=== PATIENT | male | born 1975 | race Caucasian/White ===

== ENCOUNTER 2020-02-19 13:34 | Emergency (ER) | payer OTHER, SELFPAY ==
[2020-02-19] VITALS (9 sets, daily range): BP systolic 138–146; BP diastolic 79–83; PULSE 77–90; RESP 17–22; TEMP 36.7; O2SAT 96–99
--- NOTE | 2020-02-19 13:30 | DI.CT_ITS ---
EXAM: CT CHEST/ABD/PEL W TECHNIQUE: CT examination of the chest, abdomen, and pelvis was performed with bolus infusion of 100 cc of Omnipaque 350. COMPARISON: No exams were available for comparison FINDINGS: Patient reportedly had blunt/penetrating trauma to the right upper anterior chest. There is an area of subcutaneous and deep muscular soft tissue edema with tiny amounts of gas extending to exterior wills rface of the right 3rd rib anteriorly. No gross hematoma. There is no pneumothorax. There is no ri b fracture. Sternum appears intact as does the clavicle. There is no evidence of a thoracic vascular injury. The lungs are clear. No pneumothorax or pleural effusion. No mediastinal hematoma. No adenopathy in the chest. Tracheobronchial tree appears intact. The liver, spleen, and pancreas appear normal. Gallbladder and bile ducts are normal. Adrenals and kidneys are unremarkable. No evidence of urinary tract injury or obstruction. No abdominal or pelvic vascular injury seen. No abdominal or pelvic adenopathy. No significant abdomi nal wall hernia or hematoma. No evidence of bowel injury. IMPRESSION: Injury to subcutaneous and deep tissues external to the thoracic cage as described above. Tiny quant ities of gas extend to the external surface of the right 3rd rib anteriorly adjacent to the costochon dral junction. No additional injury identified. RADIATION DOSE DELIVERED: Total DLP DATA REPOSITORY: All CT scans at this facility are submitted to the National Radiology Data Registry (NRDR) Dose Index Registry (DIR) with the [employer] (ACR). RADIATION OPTIMIZATION: All CT scans at this facility use at least one of these dose optimization te chniques: automated exposure control; mA and/or kV adjustment per patient size (includes targeted exa ms where dose is matched to clinical indication); or iterative reconstruction.
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
[2020-02-19 13:54] LABS: Abs Immature Grans 0.03 k/cumm (0.0-0.09); Absolute Basophil Count 0.04 k/cumm (0.0-0.2); Absolute Eosinophil Count 0.14 k/cumm (0.0-0.7); Absolute Lymphocyte Count 3.55 k/cumm (1.2-3.4); Absolute Monocyte Count 0.69 k/cumm (0.11-0.7); Absolute Neutrophil Count 4.99 k/cumm (1.2-6.7); Basophils % 0.4; Eosinophils % 1.5; HCT 44.6 % (40.0-50.0); HGB 15.9 g/dL (13.5-17.5); Immature Grans % 0.3 %; Lymphocytes % 37.6; Mean Corp. HGB Concentration 35.7 g/dL (32.0-36.0); Mean Corpuscular Hemoglobin 30.9 pg (27.0-33.0); Mean Corpuscular Volume 86.8 fL (80-95); Mean Platelet Volume 9.4 fL (8.0-11.0); Monocytes % 7.3; Neutrophils % 52.9; Platelet Count 289 x1000/uL (130-400); RBC 5.14 m/cumm (4.50-6.00); White Blood Cell Count 9.44 k/cumm (4.4-10.8)
[2020-02-19] MEDS: ACETAMINOPHEN 1,000 MG/100 ML BTL 400 MG IVPB (13:55)
[2020-02-19 14:10] LABS: ALT 66 U/L (16-63); AST 21 U/L (15-37); Albumin 4.1 g/dL (3.4-5.0); Alkaline Phosphatase 69 U/L (46-116); Anion Gap 9.4 mmol/L (3-11); BUN 15 mg/dL (7-18); Bilirubin, Total 0.4 mg/dL (0.2-1.0); CO2 28.6 mmol/L (21.0-32.0); CREATININE 1.29 mg/dL (0.70-1.30); Calcium 8.9 mg/dL (8.5-10.1); Chloride 102 mmol/L (98-107); Glucose 114 mg/dL (74-106); Potassium 3.4 mmol/L (3.5-5.1); Sodium 140 mmol/L (136-145); Total Protein 7.7 g/dL (6.4-8.2)
[2020-02-19 14:12] LABS: Troponin I < 0.05 ng/Ml (<0.06)
[2020-02-19] MEDS: Omnipaque 350 MG/ML 100 ML BTL IJ (14:19)
[2020-02-19] MEDS: Normal Saline 1,000 ML 1000 ML IV (14:24)
--- NOTE | 2020-02-19 15:29 | NUR.NOTE ---
wound was sutured by PA drain placed DSD put over wound after skin was shaved. Pt tolerated well pt states his pain has decreased to a 1/10Nursing Note:
== END 2020-02-19 16:00 | disposition home or self-care (01) ==
PROVIDERS: Emergency Provider Physician Assistant
DX: S21.111A Laceration without foreign body of right front wall of thorax without penetration into thoracic cavity, initial encounter (principal); R07.89 Other chest pain; R10.11 Right upper quadrant pain; R03.0 Elevated blood-pressure reading, without diagnosis of hypertension; I25.10 Atherosclerotic heart disease of native coronary artery without angina pectoris; Z95.5 Presence of coronary angioplasty implant and graft; W20.8XXA Other cause of strike by thrown, projected or falling object, initial encounter
CPT/HCPCS: 36415; 74177; 80053; 93005; 96361; 96374; 99285; 71260; 83735; 84484; 85025; 93010; 99284; J0131; J3490

== ENCOUNTER → 2020-02-29 12:57 | Outpatient (BNVA) | payer OTHER, SELFPAY | PROVIDERS: Visit Provider Surgery | DX: Z48.00 Encounter for change or removal of nonsurgical wound dressing (principal); S29.9XXD Unspecified injury of thorax, subsequent encounter; X58.XXXD Exposure to other specified factors, subsequent encounter | CPT/HCPCS: 99212 ==

== ENCOUNTER 2020-11-16 08:05 | Emergency (ER) | payer OTHER, SELFPAY ==
[2020-11-16 08:12] VITALS: BP 149/96; PULSE 82; RESP 16; TEMP 36.3; O2SAT 98
[2020-11-16] MEDS: Fluorescein STRIPS 100/BOX 1 MG (08:22)
[2020-11-16] MEDS: Tetracaine 0.5% 4 ML BTL (08:22)
--- NOTE | 2020-11-16 08:58 | ED.GENADUL_ITS ---
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 as you have a residual rust ring in your eye that will need management as soon as possible Use the erythromycin ointment 3 times daily for the 7 days or as recommended by your eye doctor Please return if vision change, dramatically worsening pain, or with any new or progressing complaints You may take ibuprofen 600 mg every 8 hours with food for pain control and Tylenol 650 mg every 4-6 hours for breakthrough pain Sunglasses can help with your light sensitivity blood pressure rechecked by pcp Medical Decision Making I removed the foreign body in left eye, there was no residual foreign body that I could note, there is a rust ring so I believe this with a metal injury Given the contractility of the patient's pupil, I will refer patient to ophthalmology for tomorrow evaluation, case management was made aware and patient will see [facility] Residual abrasion from removal of foreign body Placed on erythromycin ointment No evidence of open globe, negative Yousif sign, foreign body noted, no evidence of iritis or glaucoma Expressed need to follow-up on Tuesday Visual acuity 20/20 OU, OD, OS Differential Diagnosis Differential Diagnosis: Foreign body, open globe, rust strain, conjunctivitis Medical Records Medical records reviewed: Yes I reviewed the patient's medical records. HPI This 45-year-old male presents with discomfort to his left eye. He denies known trauma. 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 He denies any c orrective lenses or contact lens use. He awoke with the pain at 12:00 AM. He denies any blurry vision or double vision. He denies any additional complaints. He states that the pain is exacerbated with blinking. General Date/Time Provider Initiated Documentation: 11/16/20 08:11 . Related Data Home Medications Medication Instructions Recorded Confirmed aspirin [Aspirin Low-Strength] 81 mg PO DAILY tab-cap 11/07/15 11/16/20 atorvastatin 40 mg PO DAILY tab-cap 11/07/15 11/16/20 ibuprofen 200 mg PO DAILY PRN 07/14/17 11/16/20 acetaminophen 325 mg capsule 650 mg PO Q4H PRN cap 02/20/20 11/16/20 Allergies Allergy/AdvReac Type Severity Reaction Status Date / Time ticagrelor Allergy Intermediate Hives Unverified 11/16/20 08:16 morphine AdvReac Severe pyschosis Verified 11/16/20 08:16 General Stated Complaint: EyeProblem KEVIN: 4 Review of Systems Narrative: Review of systems obtained x3 aside from where indicated in HPI, systems to explain no loss of vision, double vision, drainage from eyes [facility] Medical History (Updated 11/16/20 @ 08:56 by LORETTA Vela) ACS (acute coronary syndrome) Surgical History History of heart artery stent Social History Smoking/Tobacco Use Status: Former Tobacco Use Smoking risk assessment performed?: Yes Alcohol Intake: current Alcohol Intake frequency: a few times a week Alcohol type: beer Drug use: Never Substance use type: does not use Do you feel safe at home: Yes Do you feel safe in your relationship?: Yes Exam [facility] Head: normal to inspection Eyes Periorbital: periorbital findings normal Eyelids: eyelids normal Conjunctivae: conjunctival abnormality Cornea: corneas abnormal and fluorescein used Pupils: PERRL EOM: EOM intact bilaterally Direct ophthalmoscopy: normal light reflex Eyes/upper lids images: 1. Foreign body noted, rust ring Course Vital Signs Vital signs: Vital Signs Temperature 36.3 C L 11/16/20 08:12 Pulse 82 11/16/20 08:12 Respiratory Rate 16 11/16/20 08:12 Blood Pressure 149/96 H 11/16/20 08:12 Pulse Oximetry 98 11/16/20 08:12 Temperature 36.3 C L 11/16/20 08:12 Temperature Source Tympanic 11/16/20 08:12 Pulse 82 11/16/20 08:12 Respiratory Rate 16 11/16/20 08:12 Respiratory Effort Non-Labored 11/16/20 08:12 Blood Pressure 149/96 H 11/16/20 08:12 Blood Pressure Position Sitting 11/16/20 08:12 Pulse Oximetry 98 11/16/20 08:12 Oxygen Delivery Method Room Air 11/16/20 08:12 Oxygen Flow Rate 0 11/16/20 08:12 Pain Level 8 11/16/20 08:12 Comment Visual actuity performed. 11/16/20 08:12
[2020-11-16] MEDS: Erythromycin Ophth Oint 3.5 GM TUBE OS (09:06)
--- NOTE | 2020-11-16 10:16 | NUR.NOTE ---
Nursing Note: Referral, provider note, and patient demographics faxed to [facility] for follow up tomorrow. Theresa Villegas
== END 2020-11-16 09:05 | disposition home or self-care (01) ==
PROVIDERS: Emergency Provider Physician Assistant
DX: H16.022 Ring corneal ulcer, left eye (principal)
CPT/HCPCS: 99282; 99283

== ENCOUNTER 2021-06-29 17:50 | Emergency (ER) | payer OTHER, SELFPAY ==
[2021-06-29 18:04] VITALS: BP 132/82; PULSE 87; RESP 14; TEMP 37; O2SAT 98
[2021-06-29 19:01] VITALS: BP 125/83; PULSE 80; RESP 18; TEMP 36.6; O2SAT 98
[2021-06-29 19:08] LABS: Bilirubin Negative (Negative); Blood Negative (Negative); Clarity Clear (Clear); Glucose Negative (Negative); Ketones Negative (Negative); Leukocyte Esterase Negative (Negative); Nitrite Negative (Negative); Specific Gravity >= 1.030 (1.005-1.025); Urobilinogen 0.2 EU/dL (Up TO 0.2); pH 5.5 (5-8)
[2021-06-29 19:11] LABS: Abs Immature Grans 0.03 10^3/uL (0.0-0.06); Absolute Basophil Count 0.05 10^3/uL (0.0-0.2); Absolute Eosinophil Count 0.12 10^3/uL (0.0-0.7); Absolute Lymphocyte Count 2.64 10^3/uL (1.2-3.4); Absolute Monocyte Count 0.75 10^3/uL (0.1-0.8); Absolute Neutrophil Count 7.13 10^3/uL (1.2-6.7); Basophils % 0.5; Eosinophils % 1.1; HCT 45.9 % (40.0-50.0); HGB 15.8 g/dL (13.5-17.5); Immature Grans % 0.3; Lymphocytes % 24.6; MCH 30.6 pg (27.0-33.0); MCHC 34.4 % (32.0-36.0); MPV 9.4 fL (8.0-11.0); Neutrophils % 66.5; Nucleated RBC 0 %; Platelet Count 277 10^3/uL (130-400); RBC 5.16 10^6/uL (4.36-5.78); RDW 12.4 % (11.8-14.1); WBC 10.72 10^3/uL (4.4-10.8)
--- NOTE | 2021-06-29 19:15 | DI.CT_ITS ---
Exam(s) CT ABDOMEN PELVIS W EXAM: CT ABDOMEN PELVIS W CLINICAL HISTORY: RLQ abdominal pain TECHNIQUE: Imaging Protocol: Axial computed tomography images with coronal and sagittal reformatted images were created and reviewed CONTRAST MATERIAL: Intravenous: Omnipaque 350 Contrast volume:100 mL Oral: No COMPARISON: CT CT CHEST/ABD/PEL W from 02/19/2020 FINDINGS: ABDOMEN: Lung Bases: Dependent atelectasis. Liver: Diffuse fatty infiltration of the liver. No measurable mass. Portal, Superior Mesenteric, and Splenic Veins: Unremarkable. Gallbladder and Biliary Tract: No radiodense calculus or dilation. Pancreas: Normal density, no abnormal calcifications or inflammatory process. Spleen: Normal. Adrenals: No masses seen. Kidneys: Normal size, contour and axis. No radiodense stones or obstructive uropathy. No masses seen. Abdominal Aorta: Abdominal portion non-dilated. Mild atherosclerosis. Bowel: No obstruction or bowel wall thickening. Appendix is unremarkable. Peritoneal Cavity: No ascites. There are inflammatory changes seen adjacent to the ascending colon a round of fat density abnormality suggestive of epiploic appendagitis. No free air. Lymph Nodes: Within normal limits. Bones: Within normal limits for the patient's age. Soft Tissues: Bilateral fat containing inguinal hernia. PELVIS: Bladder: The urinary bladder is incompletely distended. There is mild thickening of the wall likely due to underdistention. Inflammatory or infectious cystitis cannot be excluded. Please correlate cl inically. Reproductive Organs: Unremarkable as visualized. Lymph Nodes: Within normal limits. Bones: Within normal limits for the patient's age. IMPRESSION: 1. Findings consistent with epiploic appendagitis adjacent to the ascending colon. 2. Normal appendix. 3. Nondistended urinary bladder. Apparent thickening of the wall which is likely due to underdistent ion. Infectious/inflammatory cystitis cannot be entirely excluded. RADIATION DOSE DELIVERED: 1,236.46mGy.cm Total DLP DATA REPOSITORY: All CT scans at this facility are submitted to the National Radiology Data Registry (NRDR) Dose Index Registry (DIR) with the [employer] (ACR). RADIATION OPTIMIZATION: All CT scans at this facility use at least one of these dose optimization te chniques: automated exposure control; mA and/or kV adjustment per patient size (includes targeted exa ms where dose is matched to clinical indication); or iterative reconstruction.
--- NOTE | 2021-06-29 19:23 | ED.GENADUL_ITS ---
Discharge Plan Disposition Patient Disposition: HOME Condition: Improving Discharge Details Clinical Impression: Epiploic appendagitis Primary Care Provider: [place] ED Provider: Lilliana Subramanian Home Meds and New Rx's Prescriptions: Continued acetaminophen [Tylenol] 325 mg capsule 650 mg PO Q4H PRNRF: 0 atorvastatin 80 MG tablet 40 mg PO DAILY RF: 0 aspirin [Aspirin Low-Strength] 81 MG tablet,chewable 81 mg PO DAILY RF: 0 ibuprofen 200 MG tablet 200 mg PO DAILY PRNRF: 0 Discharge Instructions Instructions: Abdominal Pain (ED) Additional Instructions: Your CT scan today noted evidence of inflammatory changes within the fatty tissue holding the bowel together consistent with a blood clot within the fatty tissue which is called epiploic appendagitis. This is a benign and self- limiting condition meaning that it will likely resolve on its own within the next few days. Alternate tylenol and motrin as needed and directed for pain. Call your primary care doctor tomorrow to schedule a follow-up appointment for reevaluation. There were other additional likely incidental findings noted on your CT scan today. You should follow up with general surgery for evaluation and consideration for outpatient colonoscopy for the colitis noted on your CT scan today. You should also follow-up with urology for consideration for outpatient cystoscopy for the urinary bladder wall thickening noted on your CT scan today. Return immediately to the emergency department if you develop any worsening or new concerning symptoms. Discharge Data Discharge Physician: Lilliana Subramanian Medical Decision Making 45yo M w/ a h/o coronary artery disease, LA, hyperlipidemia, hernia repair presents with right lower quadrant abdominal pain since this morning. Patient appears comfortable and non-toxic. His abdomen is soft but tender in the suprapubic and right lower quadrant region. There is no rigidity or guarding. Differential diagnosis includes appendicitis, gastroenteritis, colitis. History and presentation does not appear consistent with UTI, diverticulitis, mesenteric ischemia. Will place an IV, bolus IV fluids, screening labs, CT abdomen and pelvis and give a dose of IV Tylenol and reassess. Patient is declining any narcotic pain medication. Labs and imaging reviewed. Normal white blood cell count. Normal hemoglobin. Normal electrolytes. Urinalysis obtained on arrival and notes high specific gravity but no evidence of infection. CT abdomen and pelvis notes: IMPRESSION: 1. Inflammatory changes within the mesentery adjacent to the ascending colon with findings typical for epiploic appendagitis. 2. The appendix appears normal. 3. Thickening of the wall of the descending and sigmoid colon. This may be artifact due to lack of distention. However, inflammatory bowel disease or other causes of colitis cannot be excluded. Follow-up with colonoscopy is advised to exclude any possibility of an underlying colonic lesion, if not done recently. 4. Urinary bladder wall thickening. This may be artifact due to lack of distention. However, cystitis or neoplasm cannot be excluded. 5. Fatty liver disease. Patient reassessed and his symptoms are improved. Patient feels comfortable going home. His results were explained and that his symptoms are likely due to epiploic appendagitis which is a benign and self-limiting condition. He is advised to alternate Tylenol and Motrin. The other CT scan findings were also discussed and that he was advised to follow-up with general surgery and urology at the [place] for further evaluation of this if indicated. Usual and customary return precautions given prior to discharge. Medical Records Medical records reviewed: Yes I reviewed the patient's medical records. Imaging Data Radiologic Study: Radiologist's impression: CT Abdomen And Pelvis With Contrast Exam date and time: 06/29/2021 7:22 PM Age: 45 years old Clinical indication: Localized; Right lower quadrant (rlq); Patient HX: Rlq abdominal pain; Per PT: Since this morning TECHNIQUE: Imaging protocol: Computed tomography of the abdomen and pelvis with contrast. COMPARISON: CT CHEST/ABD/PEL W 02/19/2020 1:52 PM FINDINGS: Liver: The liver appears diffusely decreased in density. Gallbladder and bile ducts: Normal. No calcified stones. No ductal dilation. Pancreas: Normal. No ductal dilation. Spleen: Normal. No splenomegaly. Adrenal glands: Normal. No mass. Kidneys and ureters: Normal. No hydronephrosis. Stomach and bowel: There is mild thickening of the wall of the descending and sigmoid colon though they are not well distended. Appendix: The appendix is well-visualized and appears normal. Intraperitoneal space: Mesenteric inflammatory changes are seen adjacent to the ascending colon with a hyperattenuating ring sign consistent with epiploic appendagitis. Vasculature: The aorta demonstrates mild atherosclerotic calcification. Lymph nodes: Unremarkable. No enlarged lymph nodes. Urinary bladder: Thickened wall of the urinary bladder. Reproductive: Unremarkable as visualized. Bones/joints: Unremarkable. No acute fracture. Soft tissues: Unremarkable. IMPRESSION: 1. Inflammatory changes within the mesentery adjacent to the ascending colon with findings typical for epiploic appendagitis. 2. The appendix appears normal. 3. Thickening of the wall of the descending and sigmoid colon. This may be artifact due to lack of distention. However, inflammatory bowel disease or other causes of colitis cannot be excluded. Follow-up with colonoscopy is advised to exclude any possibility of an underlying colonic lesion, if not done recently. 4. Urinary bladder wall thickening. This may be artifact due to lack of distention. However, cystitis or neoplasm cannot be excluded. 5. Fatty liver disease. Lab Data Lab results reviewed: Yes I reviewed the patient's lab results. Labs: Laboratory Tests Range/Units 06/29/21 06/29/21 06/29/21 18:56 19:05 19:05 WBC (4.4-10.8) 10^3/uL 10.72 RBC (4.36-5.78) 10^6/uL 5.16 Hgb (13.5-17.5) g/dL 15.8 Hct (40.0-50.0) % 45.9 MCV (80-95) fL 89.0 MCH (27.0-33.0) pg 30.6 MCHC (32.0-36.0) % 34.4 RDW (11.8-14.1) % 12.4 Plt Count (130-400) 10^3/uL 277 MPV (8.0-11.0) fL 9.4 Immature Gran % 0.3 Neutrophils % 66.5 Lymphocytes % 24.6 Monocytes % 7.0 Eosinophils % 1.1 Basophils % 0.5 Nucleated RBC % % 0 Absolute Neutrophils (1.2-6.7) 10^3/uL 7.13 H Absolute Lymphocytes (1.2-3.4) 10^3/uL 2.64 Absolute Monocytes (0.1-0.8) 10^3/uL 0.75 Absolute Eosinophils (0.0-0.7) 10^3/uL 0.12 Absolute Basophils (0.0-0.2) 10^3/uL 0.05 Sodium (136-145) mmol/L 140 Potassium (3.5-5.1) mmol/L 4.5 Chloride (98-107) mmol/L 105 Carbon Dioxide (21.0-32.0) mmol/L 29.6 Anion Gap (3-11) mmol/L 5.4 BUN (7-18) mg/dL 21 H Creatinine (0.70-1.30) mg/dL 1.2 Estimated GFR/1.73 m2 (mL/min/1.73m2) >= 60.00 Glucose (74-106) mg/dL 96 Calcium (8.5-10.1) mg/dL 9.2 Total Bilirubin (0.2-1.0) mg/dL 0.4 AST (15-37) U/L 12 L ALT (16-63) U/L 44 Alkaline Phosphatase (46-116) U/L 75 Total Protein (6.4-8.2) g/dL 8.1 Albumin (3.4-5.0) g/dL 4.1 Lipase (73-393) U/L 125 Urine Color (Yellow) Yellow Urine Clarity (Clear) Clear Urine pH (5-8) 5.5 Ur Specific Powers (1.005-1.025) >= 1.030 H Urine Protein (Negative) mg/dL Trace H Urine Ketones (Negative) mg/dL Negative Urine Blood (Negative) Negative Urine Nitrite (Negative) Negative Urine Bilirubin (Negative) Negative Urine Urobilinogen (Up TO 0.2) EU/dL 0.2 Ur Leukocyte Esterase (Negative) Negative Urine RBC (0-2) HPF Negative Urine WBC (0-5) HPF Negative Ur Epithelial Cells (Negative) HPF Few Urine Crystals (Negative) HPF Negative Urine Bacteria (Negative) HPF Negative Urine Casts (Negative) LPF 3-5 Hyaline Urine Mucus (Negative) Moderate Ur Culture Indicated? No Urine Glucose (Negative) mg/dL Negative HPI General Mode of arrival: ambulatory . Date/Time Provider Initiated Documentation: 06/29/21 18:01 . Limitations to Documentation: no limitations . Information obtained by: patient . HPI Narrative: Patient is a 45-year-old male with a history of coronary artery disease, hyperlipidemia, LA and hernia repair presents for right lower quadrant abdominal pain this morning. He describes the pain is intermittent and dull this morning, and now more constant and sharp this evening. He states the pain is currently 7/10. He denies any radiation of pain. He states he has not taken any medication for pain. He denies any fever, nausea, vomiting, diarrhea, urinary symptoms or injury. He denies any aggravating or alleviating factors. He states he has been eating normally today. Related Data Home Medications Medication Instructions Recorded Confirmed aspirin [Aspirin Low-Strength] 81 mg PO DAILY tab-cap 11/07/15 06/29/21 atorvastatin 40 mg PO DAILY tab-cap 11/07/15 06/29/21 ibuprofen 200 mg PO DAILY PRN 07/14/17 06/29/21 acetaminophen 325 mg capsule 650 mg PO Q4H PRN cap 02/20/20 06/29/21 Allergies Allergy/AdvReac Type Severity Reaction Status Date / Time ticagrelor Allergy Intermediate Hives Unverified 06/29/21 19:00 morphine AdvReac Severe pyschosis Verified 06/29/21 19:00 General Stated Complaint: Abd Prob KEVIN: 3 Review of Systems All systems reviewed & are unremarkable except as noted in HPI and below Constitutional Constitutional: Reports as per HPI, Denies chills and Denies fever(s) Eyes Eyes: Denies blurry vision ENT Ears, Nose, Mouth, and Throat: Denies dizziness, Denies sore throat and Denies throat swelling Cardiovascular Cardiovascular: Denies chest pain and Denies dyspnea Respiratory Respiratory: Denies cough and Denies dyspnea Gastrointestinal Gastrointestinal: Denies abdominal pain, Denies diarrhea and Denies vomiting Genitourinary Genitourinary: Denies hematuria and Denies dysuria Musculoskeletal Musculoskeletal: Denies back pain and Denies numbness Integumentary/Breasts Skin/Breast: Denies lesions and Denies rash Neurologic Neurologic: Denies dizziness, Denies localized weakness and Denies numbness Allergic/Immunologic Allergic/Immunologic: Denies throat swelling [facility] Medical History (Updated 06/29/21 @ 21:31 by Lilliana Subramanian DO) ACS (acute coronary syndrome) Surgical History History of heart artery stent Social History Smoking/Tobacco Use Status: Current every day Tobacco Type: cigarettes Smoking risk assessment performed?: Yes Alcohol Intake: current Alcohol Intake frequency: 0-2 drinks per day Alcohol type: beer Drug use: Never Substance use type: does not use Do you feel safe at home: Yes Do you feel safe in your relationship?: Yes Exam Const General: cooperative, healthy appearing and no acute distress [facility] Head: normal to inspection Face and sinus: normal facial exam Eyes General: appearance normal, both eyes and all related structures EOM: EOM intact bilaterally Neck Neck: normal visual inspection and No submandibular swelling Lymphatic: no lymphadenopathy noted Chest Chest: normal inspection of the chest and no tenderness Resp Effort & Inspection: normal respiratory effort and able to speak in complete sentences Auscultation: clear to auscultation bilaterally Cardio Rate: regular rate Rhythm: regular rhythm GI Inspection: normal to inspection Palpation: soft, not firm, not rigid and tender in the RLQ Auscultation: hypoactive bowel sounds Skin General skin exam: no rashes or lesions noted Neuro General: patient alert, patient awake and patient oriented x3 Cognition: normal cognition Speech: speech normal Motor: muscle tone normal throughout Sensory Exam: no sensory deficits noted Extrem General: normal to inspection, full ROM, capillary refill normal, no calf tenderness bilaterally and no edema Psych Appearance: grossly normal Mental Status: mental status grossly normal Speech and Movement: speech and movement normal Affect: normal affect Course Vital Signs Vital signs: Vital Signs Temperature 98.6 F 06/29/21 18:04 Pulse 87 06/29/21 18:04 Respiratory Rate 14 06/29/21 18:04 Blood Pressure 132/82 06/29/21 18:04 Pulse Oximetry 98 06/29/21 18:04 Temperature 97.9 F 06/29/21 19:01 Temperature Source Temporal Artery Scan 06/29/21 19:01 Pulse 80 06/29/21 19:01 Respiratory Rate 18 06/29/21 19:01 Respiratory Effort Non-Labored 06/29/21 18:57 Blood Pressure 125/83 06/29/21 19:01 Blood Pressure Position Sitting 06/29/21 18:04 Pulse Oximetry 98 06/29/21 19:01 Oxygen Delivery Method Room Air 06/29/21 19:01 Oxygen Flow Rate 0 06/29/21 19:01 Pain Level 7 06/29/21 19:01 Lab/Test Results Lab/Test Results: Laboratory Tests Range/Units 06/29/21 06/29/21 18:56 19:05 WBC (4.4-10.8) 10^3/uL 10.72 RBC (4.36-5.78) 10^6/uL 5.16 Hgb (13.5-17.5) g/dL 15.8 Hct (40.0-50.0) % 45.9 MCV (80-95) fL 89.0 MCH (27.0-33.0) pg 30.6 MCHC (32.0-36.0) % 34.4 RDW (11.8-14.1) % 12.4 Plt Count (130-400) 10^3/uL 277 MPV (8.0-11.0) fL 9.4 Immature Gran % 0.3 Neutrophils % 66.5 Lymphocytes % 24.6 Monocytes % 7.0 Eosinophils % 1.1 Basophils % 0.5 Nucleated RBC % % 0 Absolute Neutrophils (1.2-6.7) 10^3/uL 7.13 H Absolute Lymphocytes (1.2-3.4) 10^3/uL 2.64 Absolute Monocytes (0.1-0.8) 10^3/uL 0.75 Absolute Eosinophils (0.0-0.7) 10^3/uL 0.12 Absolute Basophils (0.0-0.2) 10^3/uL 0.05 Urine Color (Yellow) Yellow Urine Clarity (Clear) Clear Urine pH (5-8) 5.5 Ur Specific Powers (1.005-1.025) >= 1.030 H Urine Protein (Negative) mg/dL Trace H Urine Ketones (Negative) mg/dL Negative Urine Blood (Negative) Negative Urine Nitrite (Negative) Negative Urine Bilirubin (Negative) Negative Urine Urobilinogen (Up TO 0.2) EU/dL 0.2 Ur Leukocyte Esterase (Negative) Negative Urine Glucose (Negative) mg/dL Negative
[2021-06-29 19:26] LABS: Bacteria Negative HPF (Negative); C & S Indicated? No; Casts 3-5 Hyaline LPF (Negative); Crystals Negative HPF (Negative); Epithelial Cells Few HPF (Negative); Mucus Moderate (Negative); RBC Negative HPF (0-2); WBC Negative HPF (0-5)
[2021-06-29] MEDS: ACETAMINOPHEN 1,000 MG/100 ML BTL 400 MG IVPB (19:28)
[2021-06-29 19:29] LABS: ALT 44 U/L (16-63); AST 12 U/L (15-37); Albumin 4.1 g/dL (3.4-5.0); Alkaline Phosphatase 75 U/L (46-116); Anion Gap 5.4 mmol/L (3-11); BUN 21 mg/dL (7-18); Bilirubin, Total 0.4 mg/dL (0.2-1.0); CO2 29.6 mmol/L (21.0-32.0); CREATININE 1.2 mg/dL (0.70-1.30); Calcium 9.2 mg/dL (8.5-10.1); Chloride 105 mmol/L (98-107); Glucose 96 mg/dL (74-106); Lipase 125 U/L (73-393); Potassium 4.5 mmol/L (3.5-5.1); Sodium 140 mmol/L (136-145); Total Protein 8.1 g/dL (6.4-8.2)
[2021-06-29] MEDS: Normal Saline 1,000 ML 1000 ML IV (19:30)
[2021-06-29] MEDS: Omnipaque 350 MG/ML 100 ML BTL IJ (19:34)
--- NOTE | 2021-06-29 19:34 | NUR.NOTE ---
Non slip socks provided. Ambulates to DI with steady gait.Nursing Note:
[2021-06-29] MEDS: Normal Saline Flush 10 ML SYR IVP (19:38)
--- NOTE | 2021-06-29 20:09 | DI.VRAD_ITS ---
PROCEDURE INFORMATION: Exam: CT Abdomen And Pelvis With Contrast Exam date and time: 06/29/2021 7:22 PM Age: 45 years old Clinical indication: Localized; Right lower quadrant (rlq); Patient HX: Rlq abdominal pain; Per PT: Since this morning TECHNIQUE: Imaging protocol: Computed tomography of the abdomen and pelvis with contrast. COMPARISON: CT CHEST/ABD/PEL W 02/19/2020 1:52 PM FINDINGS: Liver: The liver appears diffusely decreased in density. Gallbladder and bile ducts: Normal. No calcified stones. No ductal dilation. Pancreas: Normal. No ductal dilation. Spleen: Normal. No splenomegaly. Adrenal glands: Normal. No mass. Kidneys and ureters: Normal. No hydronephrosis. Stomach and bowel: There is mild thickening of the wall of the descending and sigmoid colon though they are not well distended. Appendix: The appendix is well-visualized and appears normal. Intraperitoneal space: Mesenteric inflammatory changes are seen adjacent to the ascending colon with a hyperattenuating ring sign consistent with epiploic appendagitis. Vasculature: The aorta demonstrates mild atherosclerotic calcification. Lymph nodes: Unremarkable. No enlarged lymph nodes. Urinary bladder: Thickened wall of the urinary bladder. Reproductive: Unremarkable as visualized. Bones/joints: Unremarkable. No acute fracture. Soft tissues: Unremarkable. IMPRESSION: 1. Inflammatory changes within the mesentery adjacent to the ascending colon with findings typical for epiploic appendagitis. 2. The appendix appears normal. 3. Thickening of the wall of the descending and sigmoid colon. This may be artifact due to lack of distention. However, inflammatory bowel disease or other causes of colitis cannot be excluded. Follow-up with colonoscopy is advised to exclude any possibility of an underlying colonic lesion, if not done recently. 4. Urinary bladder wall thickening. This may be artifact due to lack of distention. However, cystitis or neoplasm cannot be excluded. 5. Fatty liver disease. Dictated and Authenticated by: Edin Levi MD. Ordering:BLADIMIR Tijerina MD
--- NOTE | 2021-06-29 20:22 | NUR.NOTE ---
Patient reports pain is better after medication administration. Denies need for more medication. Resting on cart with HOB elevated, watching cellular telephone. Nursing Note:
[2021-06-29] MEDS: Ketorolac 30 MG/ML VIAL IVP (20:26)
[2021-06-29 21:57] VITALS: BP 117/85; PULSE 78; RESP 16; TEMP 36.6; O2SAT 100
== END 2021-06-29 21:56 | disposition home or self-care (01) ==
PROVIDERS: Emergency Provider Physician Assistant
DX: K63.89 Other specified diseases of intestine (principal)
CPT/HCPCS: 36415; 80053; 83690; 96361; 96365; 96375; 99285; 74177; 81003; 81015; 85025; 99284; J0131; J1885; J3490

== ENCOUNTER 2024-09-14 16:06 | Outpatient (CLI) | payer MEDICAID, SELFPAY ==
--- NOTE | 2024-09-14 15:45 | DI.RAD_ITS ---
Exam(s) XR CHEST 2V PA LATERAL EXAM: XR CHEST 2V PA LATERAL CLINICAL HISTORY: Cough, R05.9, eval PNA TECHNIQUE: 2D digital imaging was performed of the chest. Two images were obtained. PA and lateral views were obtained. COMPARISON: CR PORTABLE AP CHEST from 08/29/2012 FINDINGS: MEDIASTINUM: Normal. HEART: Normal. PULMONARY VASCULATURE: Normal. LUNGS: Clear. PLEURAL SPACE: No pleural effusion or pneumothorax. BONE:Within normal limits for the patient's age. OTHER FINDINGS:Normal. IMPRESSION: No acute pulmonary findings. DATA REPOSITORY: RADIATION DOSE DELIVERED:
--- NOTE | 2024-09-14 16:35 | DI.VRAD_ITS ---
PROCEDURE INFORMATION: Exam: XR Chest Exam date and time: 09/14/2024 4:06 PM Age: 49 years old Clinical indication: Cough TECHNIQUE: Imaging protocol: Radiologic exam of the chest. Views: 2 views. COMPARISON: 1. CT CHEST/ABD/PEL W 02/19/2020 1:[address] ABDOMEN PELVIS W 06/29/2021 7:38 PM FINDINGS: Lungs: Unremarkable. No consolidation. Pleural spaces: Unremarkable. No pleural effusion. No pneumothorax. Heart/Mediastinum: Unremarkable. No cardiomegaly. Bones/joints: Unremarkable. IMPRESSION: No acute findings. Dictated and Authenticated by: Stan Summers MD. Ordering:FLORIDA Chauhan MD
== END 2024-09-14 16:26 ==
LOC: DI 16:07
PROVIDERS: Visit Provider Nurse Practitioner Family
DX: R05.9 Cough, unspecified (principal)
CPT/HCPCS: 71046